=== PATIENT | female | born 1965 | race Caucasian/White ===

== ENCOUNTER → 2017-03-17 | Outpatient (CLI) | payer OTHER ==
[~2017-03-17] MED LIST: CELEBREX 200MG200 MG PO; CIPRO 500MG TA500 MG PO; FLAGYL500 M1 PO; IBU800 M1 PO; MACROBID 100MG100 M1 PO; MAXZIDE 50 MG-71 TAB PO; POTASSIUM CHLO10 ME3 PO; PREMARIN 0.60.625 MG PO; PREVACID30 MG PO; PROBIOTIC1 EAC3 PO; STOOL SOFTENER100 M2 PO; ULTRAM 50 MG TA50 MG PO; UNITHROID0.088 MG PO; ZOFRAN4 MG PO
[2017-03-17 17:37] LABS: HEMOGLOBIN 14.5 g/dL (12.2-16.2); LYMPH % 34.6 % (10-50.0)
[2017-03-17 18:42] LABS: URINE BILIRUBIN - DIPSTICK NEGATIVE (NEG); URINE BLOOD NEGATIVE (NEG)
[2017-03-17 19:29] LABS: BUN 14 mg/dL (7-18)
[2017-03-17 19:35] LABS: GFR (ESTIMATED) 75 ML/MIN (59-)
== END ==
LOC: LAB 17:14
PROVIDERS: Surgery
DX: R10.32 Left lower quadrant pain (principal); R19.5 Other fecal abnormalities; K57.30 Diverticulosis of large intestine without perforation or abscess without bleeding; D12.6 Benign neoplasm of colon, unspecified; Z86.010 Personal history of colon polyps; R10.84 Generalized abdominal pain

== ENCOUNTER → 2017-03-19 | Outpatient (CLI) | payer OTHER ==
--- NOTE | 2017-03-20 06:25 | RADIOLOGY REPORT PS360 ---
CT ABD PELVIS W/ CONTRAST CLINICAL INDICATION: Recent flareup of diverticulosis, constipation and diarrhea, change in bowel habits DIVERTICULOSIS ORDERING PHYSICIAN: JI PIERRE MD PATIENT AGE: 51 years COMPARISON: 03/04/2016 TECHNIQUE: Axial images obtained with sagittal and coronal reformats. PROCEDURE: Oral Contrast: Redicat IV Contrast: 70 mL's of Isovue-[id number]. FINDINGS: No acute finding in the lower chest. Small hiatal hernia. Prior cholecystectomy. No biliary dilatation. The liver, spleen, adrenal glands, and pancreas have an unremarkable appearance. Small left parapelvic renal cysts. No hydronephrosis or obstructing ureteral calculus. Minimal thickening of the posterior wall the urinary bladder possibly related to nondistention Unremarkable appendix. There is diverticulosis of the sigmoid colon but no convincing evidence of diverticulitis. There is mild thickening versus nondistention of the sigmoid colon which is nonspecific. No evidence of abscess or free air. No abnormal fluid collections. There is a 12 mm isodensity in the left pelvic region line along the left iliopsoas muscle anteriorly and may be due to small lymph node or small cyst. This does not have a typical appearance for an abscess. Prior hysterectomy. There are few scattered small lymph nodes in the inguinal regions. No acute bony anomalies. No intestinal obstruction or free air IMPRESSION: 1. Sigmoid diverticulosis with no evidence of acute diverticulitis. There is mild thickening of the sigmoid colon which is nonspecific and may be due to nondistention. No abscess or paracolic fluid collection 2. No acute intra-abdominal pelvic pathology
== END ==
LOC: RAD 10:18
DX: K57.90 Diverticulosis of intestine, part unspecified, without perforation or abscess without bleeding (principal)